=== PATIENT | male | born 1950 | race Hispanic/Latino ===

== ENCOUNTER → 2019-02-04 | Day surgery (SDC) | payer BC ==
[~2019-02-04] MED LIST: BISOPROLOL FUMAR5 MG PO; FENTANYL CITRATE/PF 100MCG/2 ML INJ ONE; MIDAZOLAM HCL 2 MG/2 ML VIAL ONE; PROPOFOL IV EMULSION 10 MG/ML 50 ML VIAL ONE
[2019-02-04 08:50] VITALS: BP 140/78
== END | disposition home or self-care (01) ==
LOC: OR 05:00
PROVIDERS: ATTEND Internal Medicine Gastroenterology
DX: Z12.11 Encounter for screening for malignant neoplasm of colon (principal); K29.50 Unspecified chronic gastritis without bleeding; K31.89 Other diseases of stomach and duodenum; K21.0 Gastro-esophageal reflux disease with esophagitis; K44.9 Diaphragmatic hernia without obstruction or gangrene; K64.8 Other hemorrhoids; K62.89 Other specified diseases of anus and rectum; I10 Essential (primary) hypertension; Z01.810 Encounter for preprocedural cardiovascular examination
CPT/HCPCS: 43239; 45378; 93005; J2250; J2704; J3010